=== PATIENT | male | born 1985 | race Two or more races ===

== ENCOUNTER 2022-03-27 08:55 | Emergency (ER) | payer SELFPAY ==
[~2022-03-27] VITALS: Ht 160 cm; Wt 77.1 kg
[2022-03-27 08:55] VITALS: BP 150/98
== END 2022-03-27 10:00 | disposition left against medical advice (07) ==
LOC: ER 08:55
DX: R10.13 Epigastric pain (principal); R11.2 Nausea with vomiting, unspecified; Z53.21 Procedure and treatment not carried out due to patient leaving prior to being seen by health care provider